=== PATIENT | female | born 1940 | race Hispanic/Latino ===

== ENCOUNTER 2016-07-23 09:05 | Day surgery (SDC) | payer MEDICARE, BC ==
[2016-07-15 09:03] VITALS: BMI 21.0
[2016-07-23] MEDS ORDERED: Propofol 10 mg/ml Inj (20 ML) ONE (11:30)
[2016-07-23] MEDS ORDERED: Sodium Chloride 0.9% 1,000 ML IV SCH (12:30)
[2016-07-23 12:34] VITALS: O2SAT 98
[2016-07-23 13:27] VITALS: BP 129/72; PULSE 72; RESP 16; TEMP 97.8
== END 2016-07-23 14:00 | disposition home or self-care (01) ==
LOC: ENDO 09:05
PROVIDERS: ATTEND Internal Medicine Gastroenterology
DX: Z12.11 Encounter for screening for malignant neoplasm of colon (principal); K57.30 Diverticulosis of large intestine without perforation or abscess without bleeding; K63.3 Ulcer of intestine; K64.4 Residual hemorrhoidal skin tags; K64.8 Other hemorrhoids; Z86.010 Personal history of colon polyps; I10 Essential (primary) hypertension; Z85.3 Personal history of malignant neoplasm of breast; Z85.118 Personal history of other malignant neoplasm of bronchus and lung
CPT/HCPCS: 45378; J1642; J2001; J2704; J7040 ×2